=== PATIENT | female | born 1955 | race Two or more races ===

== ENCOUNTER 2019-05-15 20:55 | Emergency (ER) | payer OTHER ==
[~2019-05-15] VITALS: Ht 170.2 cm; Wt 69.9 kg
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
--- NOTE | 2019-05-15 21:33 | NUR ---
MD AT BEDSIDE FOR EVALUATION
[2019-05-15] MEDS ORDERED: HYDROCODONE/APAP 5/325MG 1 EACH TABLET ONE (21:42)
[2019-05-15] MEDS ORDERED: IBUPROFEN 600 MG TABLET PO ONE ×2 (21:42→22:00)
--- NOTE | 2019-05-15 21:45 | NUR ---
BROUGHT BY RADIOLOGY TO XRAY
[2019-05-15] MEDS ORDERED: HYDROCODONE/APAP 5/325MG 1 EACH TABLET PO ONE (22:00)
--- NOTE | 2019-05-15 22:02 | NUR ---
PT RETURNED FROM CT/XRAY
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
[2019-05-15 23:29] VITALS: BP 118/81
--- NOTE | 2019-05-15 23:29 | NUR ---
Patient discharged to home in stable condition. Written and verbal after care instructions given. Patient verbalizes understanding of instruction.Pt ambulatory with a steady gait
== END 2019-05-15 23:30 | disposition home or self-care (01) ==
LOC: ER 20:57
DX: S80.02XA Contusion of left knee, initial encounter (principal); R51 Headache; V49.49XA Driver injured in collision with other motor vehicles in traffic accident, initial encounter; Y93.89 Activity, other specified; Y92.488 Other paved roadways as the place of occurrence of the external cause; Y99.8 Other external cause status
CPT/HCPCS: 70450; 71045; 72125; 73060; 73564; 99284; J7030

== ENCOUNTER 2023-12-30 23:54 | Inpatient (IN) | payer MEDICARE, OTHER ==
[~2023-12-30] VITALS: Ht 170.2 cm; Wt 64.0 kg
[2023-12-31] VITALS (28 sets, daily range): BP systolic 87–170; BP diastolic 46–146; TEMP 97.7–98.2; O2SAT 97–100
[2023-12-31 00:42] LABS: BASOPHILS % (AUTO) 0.2 % (0.0-2.0); EOSINOPHILS % (AUTO) 0.1 % (0.0-6.0); HEMATOCRIT 40 % (33-45); HEMOGLOBIN 13.6 g/dL (11.5-14.8); LYMPHOCYTES # (AUTO) 0.5 K/uL (0.8-4.8); LYMPHOCYTES % (AUTO) 4.5 % (20.0-44.0); MEAN CORPUSCULAR HEMOGLOBIN 26 PG (26.0-33.0); MEAN CORPUSCULAR HGB CONC 34 g/dl (31.0-36.0); MEAN CORPUSCULAR VOLUME 77 fL (82-100); MONOCYTES # (AUTO) 0.7 K/uL (0.1-1.30); NEUTROPHILS # (AUTO) 9.6 K/uL (1.8-8.9); NEUTROPHILS % (AUTO) 89.2 % (43.0-81.0); PLATELET COUNT (AUTO) 213 K/uL (150-450); RED BLOOD CELL COUNT(AUTO) 5.17 MIL/uL (4.0-5.2); RED CELL DISTRIBUTION WIDTH 13.2 % (11.5-15.0); WHITE BLOOD COUNT (AUTO) 10.8 K/uL (4.3-11.0)
[2023-12-31 01:05] LABS: APPEARANCE,URINE CLEAR (CLEAR); BILIRUBIN,URINE NEGATIVE (NEGATIVE); BLOOD, URINE 1+ Ery/uL (NEGATIVE); COLOR,URINE YELLOW (YELLOW); KETONES,URINE 1+ mg/dL (NEGATIVE); LEUKOCYTE ESTERASE ,URINE TRACE (NEGATIVE); NITRITE, URINE NEGATIVE (NEGATIVE); PROTEIN,URINE 1+ mg/dl (NEGATIVE); UGLUCOSE 1+ mg/dL (NEGATIVE); UROBILINOGEN,URINE 0.2 EU/dL (0.2)
[2023-12-31 01:07] LABS: ADD URINE CULTURE NO; BACTERIA,URINE Rare /HPF (None Seen); SQUAMOUS EPITHELIAL CELL,UR Moderate /HPF (None Seen)
[2023-12-31] MEDS ORDERED: LORAZEPAM INJ 2 MG/ML VIAL ONE (01:40)
[2023-12-31] MEDS ORDERED: OLANZAPINE 10 MG VIAL IM ONE (01:42)
[2023-12-31] MEDS: OLANZAPINE 10 MG VIAL IM ONE (01:50)
[2023-12-31] MEDS: LORAZEPAM INJ 2 MG/ML VIAL IM ONE (01:50)
[2023-12-31 02:28] LABS: CALCIUM, SERUM 9.2 mg/dL (8.5-10.1); CARBON DIOXIDE 26 mmol/L (21-32); CREATININE 0.5 mg/dL (0.6-1.3); GLUCOSE 161 mg/dL (74-106); POTASSIUM 4.2 mmol/L (3.5-5.1); UREA NITROGEN, BLOOD 9 mg/dL (7-18)
[2023-12-31 02:30] LABS: CHLORIDE 70 mmol/L (98-107); SODIUM SERUM 102 mmol/L (136-145)
[2023-12-31 02:34] LABS: ALANINE AMINOTRANSFERASE 56 U/L (12-78); ALBUMIN 3.8 g/dL (3.4-5.0); ALCOHOL, BLOOD < 3 mg/dL (0-10); ALKALINE PHOSPHATASE 84 U/L (46-116); ASPARTATE AMINOTRANSFERASE 119 U/L (15-37); BILIRUBIN,DIRECT 0.3 mg/dL (0.0-0.2); TOTAL PROTEIN, SERUM 8.5 g/dL (6.4-8.2)
[2023-12-31 02:36] LABS: ACETAMINOPHEN <10 ug/ml (10-30); SALICYLATE < 2.3 mg/dL (2.8-20.0)
[2023-12-31] MEDS ORDERED: MAG HYDROX/AL HYDROX/SIMETH 30 ML UDC PO PRN (03:00)
[2023-12-31] MEDS ORDERED: ACETAMINOPHEN 325 MG TABLET PO PRN (03:00)
[2023-12-31] MEDS ORDERED: ONDANSETRON HCL/PF 4 MG/2 ML VIAL IVP PRN (03:00)
[2023-12-31] MEDS ORDERED: CEFTRIAXONE 1GM BAG (ER ONLY) 50 ML IV ONE (03:39)
[2023-12-31] MEDS: CEFTRIAXONE 1GM BAG (ER ONLY) 1 GM/50 ML PIGGYBACK IV ONE (03:40)
[2023-12-31] MEDS ORDERED: IV Sodium Chloride 3% 500 ML 500 ML IV ONE (04:25)
[2023-12-31] MEDS: IV Sodium Chloride 3% 500 ML 500 ML IV SCH ×2 (04:40→08:31)
[2023-12-31 07:01] LABS: MAGNESIUM 2.1 mg/dL (1.8-2.4); PHOSPHORUS 2.1 mg/dL (2.5-4.9)
[2023-12-31 07:06] LABS: AMPHETAMINE, URINE NEGATIVE (NEGATIVE); BARBITURATE, URINE NEGATIVE (NEGATIVE); BENZODIAZEPINE, URINE NEGATIVE (NEGATIVE); CANNABINOID, URINE NEGATIVE (NEGATIVE); COCCAINE, URINE NEGATIVE (NEGATIVE); OPIATE, URINE NEGATIVE (NEGATIVE); PHENCYCLIDINE SCREEN,URINE NEGATIVE (NEGATIVE)
[2023-12-31 07:26] LABS: THYROID STIMULATING HORMONE 1.44 uIU/mL (0.358-3.74)
[2023-12-31] MEDS: K PHOS NEUTRAL 250 MG TABLET PO ONE (08:35)
[2023-12-31] MEDS: PANTOPRAZOLE 40 MG VIAL IV SCH (08:36)
[2023-12-31] MEDS ORDERED: AMLO-212 PO (10:09)
[2023-12-31] MEDS ORDERED: EVOL140P3 SQ (10:09)
[2023-12-31] MEDS ORDERED: LEVO50TA8 PO (10:09)
[2023-12-31] MEDS: IV D5W 1,000 ML IV PRN (12:00)
[2023-12-31 13:29] LABS: ABG BASE EXCESS -1.5 mmol/L; ABG OXYGEN SATURATION 97.2 % (92.0-98.5); ABG PCO2 25.2 mmHg (35.0-45.0); ABG PH 7.513 (7.350-7.450); ABG PO2 90.2 mmHg (75.0-100.0); AaDO2 29.4 mmHg; COHb 0.9 % (0.5-1.5); MetHb 0.3 % (0.0-1.5); SITE, ABG Right Radial; VENT MODE, BG room air
[2023-12-31] MEDS: AMLODIPINE BESYLATE 5 MG TABLET PO SCH (17:46)
[2023-12-31 18:05] LABS: CALCIUM, SERUM 8.5 mg/dL (8.5-10.1); CREATININE 0.5 mg/dL (0.6-1.3); MAGNESIUM 2.1 mg/dL (1.8-2.4)
[2023-12-31 18:07] LABS: POTASSIUM 3.6 mmol/L (3.5-5.1)
[2024-01-01] VITALS (32 sets, daily range): BP systolic 92–161; BP diastolic 53–85; TEMP 98–98.7; O2SAT 98–100
[2024-01-01 01:02] LABS: CALCIUM, SERUM 8.3 mg/dL (8.5-10.1); CREATININE 0.6 mg/dL (0.6-1.3); POTASSIUM 3.8 mmol/L (3.5-5.1)
[2024-01-01] MEDS: DESMOPRESSIN 20 MCG in IV NS 0.9% 50 ML IV ONE (01:37)
[2024-01-01 04:33] LABS: BASOPHILS % (AUTO) 0.2 % (0.0-2.0); EOSINOPHILS % (AUTO) 0.2 % (0.0-6.0); HEMATOCRIT 35 % (33-45); HEMOGLOBIN 11.9 g/dL (11.5-14.8); LYMPHOCYTES # (AUTO) 0.9 K/uL (0.8-4.8); LYMPHOCYTES % (AUTO) 9.8 % (20.0-44.0); MEAN CORPUSCULAR HEMOGLOBIN 27 PG (26.0-33.0); MEAN CORPUSCULAR HGB CONC 35 g/dl (31.0-36.0); MEAN CORPUSCULAR VOLUME 77 fL (82-100); MONOCYTES # (AUTO) 0.9 K/uL (0.1-1.30); MONOCYTES % (AUTO) 10.3 % (2.0-12.0); NEUTROPHILS # (AUTO) 7.3 K/uL (1.8-8.9); NEUTROPHILS % (AUTO) 79.5 % (43.0-81.0); PLATELET COUNT (AUTO) 225 K/uL (150-450); RED CELL DISTRIBUTION WIDTH 13.6 % (11.5-15.0); WHITE BLOOD COUNT (AUTO) 9.2 K/uL (4.3-11.0)
[2024-01-01] MEDS: CEFTRIAXONE 1 G in IV D5W 50 ML IV SCH (04:33)
[2024-01-01 04:46] LABS: CALCIUM, SERUM 8.4 mg/dL (8.5-10.1); CREATININE 0.5 mg/dL (0.6-1.3); MAGNESIUM 2.3 mg/dL (1.8-2.4); PHOSPHORUS 2.3 mg/dL (2.5-4.9); POTASSIUM 3.9 mmol/L (3.5-5.1)
[2024-01-01 05:00] LABS: THYROID STIMULATING HORMONE 0.61 uIU/mL (0.358-3.74); URIC ACID 2.6 mg/dL (2.6-7.2)
[2024-01-01] MEDS ORDERED: CEFTRIAXONE 1 G VIAL IM SCH (09:00)
[2024-01-01] MEDS: LEVOTHYROXINE SODIUM 50 MCG TABLET PO SCH (09:05)
[2024-01-01] MEDS: PANTOPRAZOLE 40 MG TABLET.DR PO SCH (09:05)
[2024-01-01] MEDS: Z GUARD REMEDY 4 OZ OINT TP PRN (09:06)
[2024-01-01] MEDS: Z GUARD REMEDY 4 OZ OINT TP SCH (09:07)
[2024-01-01 09:53] LABS: ALBUMIN 2.9 g/dL (3.4-5.0); BILIRUBIN,DIRECT 0.2 mg/dL (0.0-0.2); BILIRUBIN,TOTAL 1.1 mg/dL (0.2-1.0); TOTAL PROTEIN, SERUM 6.7 g/dL (6.4-8.2)
[2024-01-01] MEDS: K PHOS NEUTRAL 250 MG TABLET PO ONE (11:27)
[2024-01-01 12:25] LABS: CALCIUM, SERUM 8.2 mg/dL (8.5-10.1); CREATININE 0.4 mg/dL (0.6-1.3); POTASSIUM 3.6 mmol/L (3.5-5.1)
[2024-01-01 17:18] LABS: CALCIUM, SERUM 7.9 mg/dL (8.5-10.1); CREATININE 0.5 mg/dL (0.6-1.3)
[2024-01-01 17:23] LABS: POTASSIUM 4.1 mmol/L (3.5-5.1)
[2024-01-01 19:27] LABS: URINE SODIUM, RANDOM 5 mmol/l (40-220)
[2024-01-01 20:22] LABS: CREATININE 0.4 mg/dL (0.6-1.3); POTASSIUM 4.1 mmol/L (3.5-5.1)
[2024-01-01] MEDS: IV NS 0.9% 1,000 ML IV SCH (22:15)
[2024-01-02] VITALS (20 sets, daily range): BP systolic 100–148; BP diastolic 57–80; TEMP 97.8–98.8; O2SAT 98–100
[2024-01-02 00:37] LABS: CALCIUM, SERUM 7.5 mg/dL (8.5-10.1); CREATININE 0.3 mg/dL (0.6-1.3); POTASSIUM 3.8 mmol/L (3.5-5.1)
[2024-01-02 03:57] LABS: BASOPHILS % (AUTO) 0.3 % (0.0-2.0); EOSINOPHILS # (AUTO) 0.1 K/uL (0.0-0.7); EOSINOPHILS % (AUTO) 1.1 % (0.0-6.0); HEMATOCRIT 34 % (33-45); HEMOGLOBIN 11.5 g/dL (11.5-14.8); LYMPHOCYTES # (AUTO) 1.4 K/uL (0.8-4.8); LYMPHOCYTES % (AUTO) 14.7 % (20.0-44.0); MEAN CORPUSCULAR HEMOGLOBIN 27 PG (26.0-33.0); MEAN CORPUSCULAR HGB CONC 34 g/dl (31.0-36.0); MEAN CORPUSCULAR VOLUME 78 fL (82-100); MONOCYTES # (AUTO) 0.9 K/uL (0.1-1.30); MONOCYTES % (AUTO) 9.6 % (2.0-12.0); NEUTROPHILS # (AUTO) 6.9 K/uL (1.8-8.9); NEUTROPHILS % (AUTO) 74.3 % (43.0-81.0); PLATELET COUNT (AUTO) 199 K/uL (150-450); WHITE BLOOD COUNT (AUTO) 9.2 K/uL (4.3-11.0)
[2024-01-02 04:10] LABS: ALBUMIN 2.7 g/dL (3.4-5.0); BILIRUBIN,TOTAL 0.9 mg/dL (0.2-1.0); CALCIUM, SERUM 7.3 mg/dL (8.5-10.1); CREATININE 0.3 mg/dL (0.6-1.3); PHOSPHORUS 2.2 mg/dL (2.5-4.9); POTASSIUM 3.8 mmol/L (3.5-5.1); TOTAL PROTEIN, SERUM 6.5 g/dL (6.4-8.2)
[2024-01-02 09:25] LABS: CREATININE 0.4 mg/dL (0.6-1.3); POTASSIUM 3.4 mmol/L (3.5-5.1)
[2024-01-02] MEDS: K PHOS NEUTRAL 250 MG TABLET PO ONE (09:33)
[2024-01-03] VITALS: BP 114/67; TEMP 98; O2SAT 98
[2024-01-03 04:00] VITALS: BP 120/66; TEMP 98.2; O2SAT 99
[2024-01-03 06:41] LABS: BASOPHILS # (AUTO) 0.1 K/uL (0.0-0.2); BASOPHILS % (AUTO) 0.7 % (0.0-2.0); EOSINOPHILS # (AUTO) 0.2 K/uL (0.0-0.7); EOSINOPHILS % (AUTO) 2.3 % (0.0-6.0); HEMATOCRIT 32 % (33-45); LYMPHOCYTES # (AUTO) 1.1 K/uL (0.8-4.8); LYMPHOCYTES % (AUTO) 13.8 % (20.0-44.0); MEAN CORPUSCULAR HEMOGLOBIN 27 PG (26.0-33.0); MEAN CORPUSCULAR HGB CONC 34 g/dl (31.0-36.0); MEAN CORPUSCULAR VOLUME 79 fL (82-100); MONOCYTES # (AUTO) 0.8 K/uL (0.1-1.30); MONOCYTES % (AUTO) 10.1 % (2.0-12.0); NEUTROPHILS # (AUTO) 5.8 K/uL (1.8-8.9); NEUTROPHILS % (AUTO) 73.1 % (43.0-81.0); PLATELET COUNT (AUTO) 217 K/uL (150-450); RED BLOOD CELL COUNT(AUTO) 4.11 MIL/uL (4.0-5.2); RED CELL DISTRIBUTION WIDTH 13.8 % (11.5-15.0)
[2024-01-03 07:13] LABS: CALCIUM, SERUM 7.6 mg/dL (8.5-10.1); CREATININE 0.4 mg/dL (0.6-1.3); MAGNESIUM 1.8 mg/dL (1.8-2.4); PHOSPHORUS 2.7 mg/dL (2.5-4.9); POTASSIUM 3.6 mmol/L (3.5-5.1)
[2024-01-03 08:00] VITALS: BP 121/62; TEMP 98.2; O2SAT 100
[2024-01-03 12:00] VITALS: BP 148/74; TEMP 97.3; O2SAT 100
[2024-01-03 16:00] VITALS: BP 144/83; TEMP 98.4; O2SAT 100
[2024-01-03 20:00] VITALS: BP 119/77; TEMP 98.4; O2SAT 98
[2024-01-03] MEDS: MAGNESIUM HYDROXIDE 30 ML UDC PO PRN (23:24)
[2024-01-04] VITALS: BP 145/71; TEMP 98.2; O2SAT 100
[2024-01-04 04:00] VITALS: BP 147/72; TEMP 98.2; O2SAT 100
[2024-01-04 07:20] LABS: BASOPHILS # (AUTO) 0.1 K/uL (0.0-0.2); BASOPHILS % (AUTO) 0.9 % (0.0-2.0); EOSINOPHILS # (AUTO) 0.4 K/uL (0.0-0.7); EOSINOPHILS % (AUTO) 4.5 % (0.0-6.0); HEMATOCRIT 35 % (33-45); LYMPHOCYTES # (AUTO) 1.5 K/uL (0.8-4.8); LYMPHOCYTES % (AUTO) 18.7 % (20.0-44.0); MEAN CORPUSCULAR HEMOGLOBIN 27 PG (26.0-33.0); MEAN CORPUSCULAR HGB CONC 34 g/dl (31.0-36.0); MEAN CORPUSCULAR VOLUME 80 fL (82-100); MONOCYTES # (AUTO) 0.8 K/uL (0.1-1.30); MONOCYTES % (AUTO) 9.6 % (2.0-12.0); NEUTROPHILS # (AUTO) 5.3 K/uL (1.8-8.9); NEUTROPHILS % (AUTO) 66.3 % (43.0-81.0); PLATELET COUNT (AUTO) 260 K/uL (150-450); RED BLOOD CELL COUNT(AUTO) 4.41 MIL/uL (4.0-5.2); RED CELL DISTRIBUTION WIDTH 14.2 % (11.5-15.0); WHITE BLOOD COUNT (AUTO) 7.9 K/uL (4.3-11.0)
[2024-01-04 07:30] VITALS: BP 128/74; TEMP 98.6; O2SAT 100
[2024-01-04 07:47] LABS: CREATININE 0.3 mg/dL (0.6-1.3); MAGNESIUM 2.1 mg/dL (1.8-2.4); PHOSPHORUS 2.9 mg/dL (2.5-4.9); POTASSIUM 4.1 mmol/L (3.5-5.1)
[2024-01-04] MEDS ORDERED: IV NS 0.9% 250 ML IV ONE (09:02)
[2024-01-04] MEDS ORDERED: IOHEXOL-350 100 ML VIAL IV ONE (09:02)
[2024-01-04 16:00] VITALS: BP 121/65; TEMP 98.2; O2SAT 100
[2024-01-04 20:00] VITALS: BP 117/62; TEMP 98.1; O2SAT 100
[2024-01-05] VITALS: BP 146/77; TEMP 97.9; O2SAT 100
[2024-01-05 04:00] VITALS: BP 130/63; TEMP 98.1; O2SAT 100
[2024-01-05] MEDS: IV NS 0.9% 1,000 ML IV PRN (04:33)
[2024-01-05 06:21] LABS: BASOPHILS # (AUTO) 0.1 K/uL (0.0-0.2); BASOPHILS % (AUTO) 0.9 % (0.0-2.0); EOSINOPHILS # (AUTO) 0.4 K/uL (0.0-0.7); EOSINOPHILS % (AUTO) 6.4 % (0.0-6.0); HEMATOCRIT 34 % (33-45); HEMOGLOBIN 11.6 g/dL (11.5-14.8); LYMPHOCYTES % (AUTO) 15.3 % (20.0-44.0); MEAN CORPUSCULAR HEMOGLOBIN 27 PG (26.0-33.0); MEAN CORPUSCULAR HGB CONC 34 g/dl (31.0-36.0); MEAN CORPUSCULAR VOLUME 80 fL (82-100); MONOCYTES # (AUTO) 0.5 K/uL (0.1-1.30); MONOCYTES % (AUTO) 7.1 % (2.0-12.0); NEUTROPHILS # (AUTO) 4.7 K/uL (1.8-8.9); NEUTROPHILS % (AUTO) 70.3 % (43.0-81.0); PLATELET COUNT (AUTO) 260 K/uL (150-450); RED BLOOD CELL COUNT(AUTO) 4.32 MIL/uL (4.0-5.2); RED CELL DISTRIBUTION WIDTH 14.3 % (11.5-15.0); WHITE BLOOD COUNT (AUTO) 6.7 K/uL (4.3-11.0)
[2024-01-05 06:39] LABS: CALCIUM, SERUM 8.5 mg/dL (8.5-10.1); CREATININE 0.4 mg/dL (0.6-1.3); MAGNESIUM 2.3 mg/dL (1.8-2.4); PHOSPHORUS 3.4 mg/dL (2.5-4.9); POTASSIUM 4.5 mmol/L (3.5-5.1)
[2024-01-05 07:30] VITALS: BP 114/63; TEMP 98.4; O2SAT 100
[2024-01-05] MEDS ORDERED: IOHEXOL-300 100 ML VIAL IV ONE (10:18)
[2024-01-05] MEDS ORDERED: CT SWABBABLE VALVE TRANS SET 1 EA INFUS.SET MC ONE (10:18)
[2024-01-05] MEDS ORDERED: IV NS 0.9% 250 ML IV ONE (10:18)
[2024-01-05 11:00] VITALS: BP 133/68; TEMP 98.4; O2SAT 100
[2024-01-05] MEDS ORDERED: GADOTERATE MEGLUMINE 10 MMOL/20 ML VIAL IV ONE (11:17)
[2024-01-05 16:00] VITALS: BP 111/60; TEMP 98.6; O2SAT 100
[2024-01-05 17:28] VITALS: BP 116/70
[2024-01-06 13:10] LABS: CARBOHYDRATE AG 19-9 30 U/mL (0-35)
[2024-01-06 14:12] LABS: HEPATITIS B SURFACE AB Non Reactive (.)
== END 2024-01-05 19:20 | disposition home or self-care (01) | DRG 640 ==
LOC: ER 12-31 00:08 → ICU 12-31 02:52 → TELE 01-02 18:31
PROVIDERS: ATTEND Nurse Practitioner Acute Care
DX: E86.9 Volume depletion, unspecified (principal); G93.41 Metabolic encephalopathy; N13.30 Unspecified hydronephrosis; E87.1 Hypo-osmolality and hyponatremia; E03.9 Hypothyroidism, unspecified; E87.8 Other disorders of electrolyte and fluid balance, not elsewhere classified; I10 Essential (primary) hypertension; D35.02 Benign neoplasm of left adrenal gland; E80.6 Other disorders of bilirubin metabolism; R74.01 Elevation of levels of liver transaminase levels; Z20.822 Contact with and (suspected) exposure to COVID-19; K76.89 Other specified diseases of liver; F41.9 Anxiety disorder, unspecified
CPT/HCPCS: 36415; 36600; 70450-TC; 71045-TC; 71270-TC; 74170-TC; 74183; 76705-TC; 80048-TC; 80053-TC; 80061-TC; 80076-TC; 81001; 82105; 82378; 82607-TC; 82803-TC; 83735-TC; 83935-TC; 84100-TC; 84295-TC; 84300-TC; 84443-TC; 84550-TC; 85025-TC; 86301; 86706; 86803; 87081-TC; 87086-TC; 87340; 97110-TC; 97116-TC; 97530-TC; A4223; A9575; G0378; G0480; J0696; J2060; J2597; J3490; J7030; J7040; J7050; J7060; J7070; Q9967